=== PATIENT | male | born 1995 | race African-American/Black ===

== ENCOUNTER 2021-10-15 21:04 | Inpatient (IN) | payer OTHER ==
[~2021-10-15] VITALS: Ht 182.9 cm; Wt 76.7 kg
[2021-10-15] MEDS ORDERED: LACTATED RINGERS 1,000 ML IV SCH (21:45)
[2021-10-15 22:17] LABS: BASOPHILS % 0.4 % (0.0-2.0); EOSINOPHILS % 0.1 % (0.0-5.0); HEMATOCRIT. 49.2 % (42.0-52.0); HEMOGLOBIN. 14.7 g/dL (14.0-18.0); LYMPHOCYTES % 9.1 % (20.0-50.0); MEAN CORPUSCULAR HEMOGLOBIN 22.5 pg (28.0-32.0); MEAN CORPUSCULAR VOLUME 74.9 fL (80.0-94.0); MEAN PLATELET VOLUME 8.9 fl (7.4-10.4); MONOCYTES % 10.5 % (2.0-8.0); NEUTROPHILS % 79.9 % (40.0-76.0); PLATELET 296 x1000/uL (130-400); RED BLOOD CELL COUNT 6.56 mill/uL (4.7-6.1); RED CELL DISTRIBUTION WIDTH 15.9 % (11.6-14.6)
[2021-10-15 22:26] LABS: CHLORIDE 96 mEq/L (98-107)
[2021-10-15 22:35] LABS: PLATELET ESTIMATE NORMAL
[2021-10-15] MEDS ORDERED: INSULIN REGULAR (DRIP) 100 UNITS in SODIUM CHLORIDE 0.9% 100 ML IV NR (22:45)
[2021-10-15] MEDS ORDERED: SODIUM CHLORIDE 0.9% 1,000 ML IV STA ×2 (22:46)
[2021-10-15 22:56] LABS: CLARITY URINE CLEAR (CLEAR); COLOR URINE YELLOW (YELLOW); KETONES URINE 3+ (NEGATIVE); LEUKOCYTE ESTERASE URINE NEGATIVE (NEGATIVE); NITRITE URINE NEGATIVE (NEGATIVE); OCCULT BLOOD URINE 2+ (NEGATIVE); PROTEIN URINE 1+ (NEGATIVE); UROBILINOGEN URINE 0.2 E.U./dL (0.2-1.0)
[2021-10-15] MEDS ORDERED: CALCIUM GLUCONATE 100MG/ML 10ML VIAL IV ONE (23:00)
[2021-10-15 23:07] LABS: BETA HYDROXYBUTYRATE 13.6 mMol/L (0.0-0.3)
[2021-10-15] MEDS: INSULIN REGULAR 100U/100ML PMX 100 ML IV NR (23:20)
[2021-10-16] VITALS (31 sets, daily range): BP systolic 105–133; BP diastolic 53–78
[2021-10-16 00:51] LABS: PHOSPHORUS 4.2 mg/dL (2.5-4.9)
[2021-10-16] MEDS ORDERED: SODIUM CHLORIDE 0.9% 1,000 ML IV ONE ×2 (02:00)
[2021-10-16] MEDS ORDERED: DEXT 5%/0.9% NACL 1,000 ML IV SCH (02:00)
[2021-10-16 04:45] LABS: CHLORIDE 110 mEq/L (98-107)
[2021-10-16 04:51] LABS: PHOSPHORUS 2.6 mg/dL (2.5-4.9)
[2021-10-16 05:37] LABS: CHLORIDE 114 mEq/L (98-107)
[2021-10-16 05:44] LABS: PHOSPHORUS 2.2 mg/dL (2.5-4.9)
[2021-10-16] MEDS ORDERED: DEXTROSE 50% WATER 50ML SYRINGE IV PRN ×2 (09:45)
[2021-10-16] MEDS ORDERED: ONDANSETRON HCL 4MG/2ML INJ IV PRN (09:45)
[2021-10-16] MEDS: INSULIN REGULAR 100U/100ML PMX 100 ML IV NR (09:59)
[2021-10-16] MEDS: BLOOD SUGAR DIAGNOSTIC STRIP TEST SCH ×16 (10:00→23:48)
[2021-10-16] MEDS: PANTOPRAZOLE SODIUM 40 MG/VIAL IV SCH (10:01)
[2021-10-16] MEDS: DEXT 5%/0.9% NACL 1,000 ML IV SCH ×3 (10:30→22:10)
[2021-10-16] MEDS ORDERED: INSULIN REGULAR 100U/100ML PMX 100 ML IV SCH (10:30)
[2021-10-16 13:05] LABS: CHLORIDE 113 mEq/L (98-107)
[2021-10-16 13:11] LABS: PHOSPHORUS 1.5 mg/dL (2.5-4.9)
[2021-10-16] MEDS ORDERED: MAGNESIUM/ALUMINUM HYDROXIDE/SIMETHICONE 30ML UDC PO PRN (13:30)
[2021-10-16] MEDS ORDERED: CLONIDINE 0.1MG TABLET PO PRN (13:30)
[2021-10-16] MEDS ORDERED: ACETAMINOPHEN 325MG TABLET PO PRN (13:30)
[2021-10-16] MEDS ORDERED: DOCUSATE SODIUM 100MG CAPSULE PO PRN (13:30)
[2021-10-16] MEDS ORDERED: POTASSIUM PHOS,M-BASIC-D-BASIC 30 MMOL in DEXTROSE 5% WATER 1,000 ML IV SCH (13:30)
[2021-10-16] MEDS: ENOXAPARIN 40MG/0.4ML SYR SUBCUT SCH (15:00)
[2021-10-16] MEDS ORDERED: THROAT LOZENGES-BENZOCAINE/MENTH/CETYLPYRD CL LOZENGES MM PRN (15:00)
[2021-10-16] MEDS ORDERED: POTASSIUM PHOS,M-BASIC-D-BASIC 30 MMOL in DEXT 5% WATER 500 ML IV NR (15:00)
[2021-10-16 16:33] LABS: HEMATOCRIT. 43.5 % (42.0-52.0); HEMOGLOBIN. 14.1 g/dL (14.0-18.0); MEAN CORPUSCULAR HEMOGLOBIN 22.2 pg (28.0-32.0); MEAN CORPUSCULAR VOLUME 68.7 fL (80.0-94.0); MEAN PLATELET VOLUME 8.2 fl (7.4-10.4); PLATELET 246 x1000/uL (130-400); RED BLOOD CELL COUNT 6.34 mill/uL (4.7-6.1); RED CELL DISTRIBUTION WIDTH 15.4 % (11.6-14.6)
[2021-10-16 16:36] LABS: CHLORIDE 114 mEq/L (98-107)
[2021-10-16 17:02] LABS: PLATELET ESTIMATE NORMAL
[2021-10-16] MEDS: METOCLOPRAMIDE HCL 10MG/2ML VIAL IV SCH (17:38)
[2021-10-16 21:38] LABS: CHLORIDE 114 mEq/L (98-107)
[2021-10-16 23:26] LABS: *COCAINE SCREEN URINE NEGATIVE (NEGATIVE); OPIATES URINE SCREEN NEGATIVE (NEGATIVE)
[2021-10-16 23:27] LABS: *AMPHETAMINES SCREEN URINE NEGATIVE (NEGATIVE); *BENZODIAZEPINES SCREEN URINE NEGATIVE (NEGATIVE); CANNABINOID URINE SCREEN PRESUMTIVE POSITIVE (NEGATIVE); PHENCYCLIDINE URINE SCREEN NEGATIVE (NEGATIVE)
[2021-10-17] VITALS (29 sets, daily range): BP systolic 103–151; BP diastolic 24–96
[2021-10-17 01:55] LABS: CHLORIDE 115 mEq/L (98-107)
[2021-10-17] MEDS: BLOOD SUGAR DIAGNOSTIC STRIP TEST SCH ×9 (02:39→21:55)
[2021-10-17] MEDS: DEXT 5%/0.9% NACL 1,000 ML IV SCH ×3 (05:53→21:55)
[2021-10-17] MEDS: METOCLOPRAMIDE HCL 10MG/2ML VIAL IV SCH ×4 (05:53→18:00)
[2021-10-17 06:44] LABS: CHLORIDE 113 mEq/L (98-107)
[2021-10-17 06:53] LABS: PHOSPHORUS 1.3 mg/dL (2.5-4.9)
[2021-10-17 06:56] LABS: T4 FREE 1.06 ng/dL (0.76-1.46)
[2021-10-17 07:05] LABS: BASOPHILS % 0.2 % (0.0-2.0); HEMATOCRIT. 42.2 % (42.0-52.0); HEMOGLOBIN. 13.9 g/dL (14.0-18.0); LYMPHOCYTES % 9.2 % (20.0-50.0); MEAN CORPUSCULAR HEMOGLOBIN 22.5 pg (28.0-32.0); MEAN CORPUSCULAR VOLUME 68.1 fL (80.0-94.0); MEAN PLATELET VOLUME 8.3 fl (7.4-10.4); MONOCYTES % 9.4 % (2.0-8.0); NEUTROPHILS % 81.2 % (40.0-76.0); PLATELET 198 x1000/uL (130-400); RED CELL DISTRIBUTION WIDTH 15.6 % (11.6-14.6)
[2021-10-17] MEDS: KCL 20MEQ/100ML PREMIX 100 ML IV SCH ×2 (08:00→10:00)
[2021-10-17] MEDS: PANTOPRAZOLE SODIUM 40 MG/VIAL IV SCH (09:00)
[2021-10-17 09:34] LABS: CHLORIDE 116 mEq/L (98-107)
[2021-10-17] MEDS ORDERED: DEXTROSE 50% WATER 50ML SYRINGE IV PRN (11:15)
[2021-10-17] MEDS: INSULIN LISPRO 100 UNITS/ML SUBCUT SCH ×3 (13:20→21:57)
[2021-10-17] MEDS: ENOXAPARIN 40MG/0.4ML SYR SUBCUT SCH (15:00)
[2021-10-17] MEDS ORDERED: INSULIN GLARGINE UD 100 UNITS/ML SYR SUBCUT SCH (22:00)
[2021-10-17 22:16] LABS: *BARBITURATES SCREEN URINE NEGATIVE (NEGATIVE); METHADONE URINE SCREEN NEGATIVE (NEGATIVE)
[2021-10-18] VITALS (18 sets, daily range): BP systolic 123–145; BP diastolic 66–96
[2021-10-18] MEDS: METOCLOPRAMIDE HCL 10MG/2ML VIAL IV SCH ×3 (00:07→12:42)
[2021-10-18 06:16] LABS: BASOPHILS % 0.4 % (0.0-2.0); EOSINOPHILS % 0.3 % (0.0-5.0); HEMATOCRIT. 38.4 % (42.0-52.0); HEMOGLOBIN. 12.8 g/dL (14.0-18.0); LYMPHOCYTES % 21.7 % (20.0-50.0); MEAN CORPUSCULAR HEMOGLOBIN 22.5 pg (28.0-32.0); MEAN CORPUSCULAR VOLUME 67.6 fL (80.0-94.0); MONOCYTES % 9.5 % (2.0-8.0); NEUTROPHILS % 68.1 % (40.0-76.0); PLATELET 165 x1000/uL (130-400); RED BLOOD CELL COUNT 5.68 mill/uL (4.7-6.1); RED CELL DISTRIBUTION WIDTH 15.2 % (11.6-14.6)
[2021-10-18 06:31] LABS: CHLORIDE 105 mEq/L (98-107)
[2021-10-18 06:41] LABS: PHOSPHORUS 2.2 mg/dL (2.5-4.9)
[2021-10-18] MEDS ORDERED: LANC-867 TP (07:48)
[2021-10-18] MEDS ORDERED: SYRI-219 SQ (07:48)
[2021-10-18] MEDS ORDERED: METO5TAB86 MT (07:48)
[2021-10-18] MEDS ORDERED: INSU100I28 SQ (07:48)
[2021-10-18] MEDS ORDERED: [UNRECOGNIZED DRUG - CODE] MC (07:48)
[2021-10-18] MEDS ORDERED: INSLIS SUBCUT (07:48)
[2021-10-18] MEDS ORDERED: POTASSIUM CHLORIDE 20MEQ TABLET SR PO SCH (08:00)
[2021-10-18] MEDS: PANTOPRAZOLE SODIUM 40 MG/VIAL IV SCH (08:35)
[2021-10-18] MEDS: BLOOD SUGAR DIAGNOSTIC STRIP TEST SCH ×2 (08:36→12:37)
[2021-10-18] MEDS: INSULIN LISPRO 100 UNITS/ML SUBCUT SCH ×2 (08:36→12:43)
[2021-10-18] MEDS ORDERED: POTASSIUM PHOS,M-BASIC-D-BASIC 20 MMOL in DEXT 5% WATER 243.3333 ML IV SCH (10:00)
[2021-10-18] MEDS ORDERED: INSULIN GLARGINE UD 100 UNITS/ML SYR SUBCUT SCH (10:00)
[2021-10-18] MEDS: ENOXAPARIN 40MG/0.4ML SYR SUBCUT SCH (15:00)
[2021-10-18 15:08] LABS: PHOSPHORUS 2.6 mg/dL (2.5-4.9)
== END 2021-10-18 16:20 | disposition home or self-care (01) | DRG 639 ==
LOC: ER 21:04 → MICUSO 10-16 00:11 → CVICU 10-16 08:58
PROVIDERS: ADMIT Internal Medicine; ATTEND Internal Medicine
DX: E10.10 Type 1 diabetes mellitus with ketoacidosis without coma (principal); E10.43 Type 1 diabetes mellitus with diabetic autonomic (poly)neuropathy; K31.84 Gastroparesis; E86.0 Dehydration; E83.39 Other disorders of phosphorus metabolism; E87.6 Hypokalemia; D72.829 Elevated white blood cell count, unspecified; Z20.822 Contact with and (suspected) exposure to COVID-19; Z79.4 Long term (current) use of insulin
CPT/HCPCS: 36415; 80048; 80053; 80076; 80305; 81003; 82010; 82962; 83036; 83735; 84100; 84132; 84145; 84439; 84443; 85025; 87426; 93005; 93970; 99291; C9113; J0610; J1650; J1815; J2765; J3480; J3490; J7030; J7042; J7050; J7060

== ENCOUNTER 2022-02-01 03:47 | Inpatient (IN) | payer MEDICAID, OTHER ==
[~2022-02-01] VITALS: Ht 170.2 cm; Wt 75.7 kg
[~2022-02-01 03:47] MED LIST: INSLIS SUBCUT; INSU100I28 SQ; LANC-867 TP; METO5TAB86 MT; SYRI-219 SQ; [UNRECOGNIZED DRUG - CODE] MC
[2022-02-01] MEDS ORDERED: SODIUM CHLORIDE 0.9% 1,000 ML IV ONE (04:15)
[2022-02-01] MEDS ORDERED: ONDANSETRON HCL 4MG/2ML INJ IV ONE (05:00)
[2022-02-01 05:04] LABS: HEMATOCRIT. 50.1 % (42.0-52.0); MEAN CORPUSCULAR HEMOGLOBIN 22.3 pg (28.0-32.0); MEAN CORPUSCULAR VOLUME 74.8 fL (80.0-94.0); MEAN PLATELET VOLUME 8.8 fl (7.4-10.4); PLATELET 370 x1000/uL (130-400); RED CELL DISTRIBUTION WIDTH 16.1 % (11.6-14.6)
[2022-02-01 05:18] LABS: CHLORIDE 99 mEq/L (98-107)
[2022-02-01 05:28] LABS: BETA HYDROXYBUTYRATE 9.3 mMol/L (0.0-0.3)
[2022-02-01] MEDS ORDERED: VANCOMYCIN 1G PREMIX 200 ML IV NR (05:45)
[2022-02-01] MEDS ORDERED: PIPERACILLIN/TAZOBACTAM 3.375GM/50ML PREMIX IV ONE (05:45)
[2022-02-01] MEDS ORDERED: SODIUM CHLORIDE 0.9% 1000ML BAG (SEPSIS BOLUS) IV ONE (05:45)
[2022-02-01] MEDS ORDERED: PIPERACILLIN/TAZ 3.375G PREMIX 50 ML IV NR (05:45)
[2022-02-01] MEDS ORDERED: INSULIN REGULAR (DRIP) 100 UNITS in SODIUM CHLORIDE 0.9% 99 ML IV ONE (06:00)
[2022-02-01 06:10] LABS: CLARITY URINE CLEAR (CLEAR); COLOR URINE YELLOW (YELLOW); KETONES URINE 4+ (NEGATIVE); LEUKOCYTE ESTERASE URINE NEGATIVE (NEGATIVE); NITRITE URINE NEGATIVE (NEGATIVE); OCCULT BLOOD URINE TRACE (NEGATIVE); PROTEIN URINE TRACE (NEGATIVE); SPECIFIC GRAVITY URINE 1.019 (1.005-1.030); UROBILINOGEN URINE 0.2 E.U./dL (0.2-1.0)
[2022-02-01] MEDS ORDERED: INSULIN REGULAR 100U/100ML PMX 100 ML IV NR (06:15)
[2022-02-01 06:29] LABS: PLATELET ESTIMATE NORMAL
[2022-02-01] MEDS ORDERED: ONDANSETRON HCL 4MG/2ML INJ IV PRN (10:30)
[2022-02-01] MEDS ORDERED: DIPHENHYDRAMINE 50MG/ML VIAL IV PRN (10:30)
[2022-02-01] MEDS ORDERED: INSULIN REGULAR (DRIP) 100 UNITS in SODIUM CHLORIDE 0.9% 99 ML IV PRN (10:30)
[2022-02-01] MEDS: SODIUM CHLORIDE 0.9% 1,000 ML IV SCH ×2 (10:44→17:10)
[2022-02-01 10:52] LABS: CHLORIDE 114 mEq/L (98-107)
[2022-02-01] MEDS: PANTOPRAZOLE SODIUM 40 MG/VIAL IV SCH (14:21)
[2022-02-01] MEDS: ENOXAPARIN 40MG/0.4ML SYR SUBCUT SCH (14:21)
[2022-02-01] MEDS ORDERED: DEXT 5%/0.45% NACL 500ML 500 ML IV ONE (16:45)
[2022-02-01] MEDS: DEXT 5%/0.45% NACL 1000ML 1,000 ML IV NR (17:15)
[2022-02-01 22:39] LABS: CHLORIDE 114 mEq/L (98-107)
[2022-02-02] MEDS: SODIUM CHLORIDE 0.9% 1,000 ML IV SCH ×3 (00:11→16:26)
[2022-02-02] MEDS: DEXT 5%/0.45% NACL 1000ML 1,000 ML IV NR (02:38)
[2022-02-02 04:06] LABS: BASOPHILS % 0.3 % (0.0-2.0); EOSINOPHILS % 0.1 % (0.0-5.0); HEMATOCRIT. 41.2 % (42.0-52.0); HEMOGLOBIN. 13.1 g/dL (14.0-18.0); LYMPHOCYTES % 12.1 % (20.0-50.0); MEAN CORPUSCULAR HEMOGLOBIN 22.7 pg (28.0-32.0); MEAN CORPUSCULAR VOLUME 71.2 fL (80.0-94.0); MEAN PLATELET VOLUME 7.8 fl (7.4-10.4); MONOCYTES % 11.7 % (2.0-8.0); NEUTROPHILS % 75.8 % (40.0-76.0); PLATELET 262 x1000/uL (130-400); RED BLOOD CELL COUNT 5.78 mill/uL (4.7-6.1); RED CELL DISTRIBUTION WIDTH 15.8 % (11.6-14.6)
[2022-02-02 04:21] LABS: CHLORIDE 113 mEq/L (98-107)
[2022-02-02 04:26] LABS: PHOSPHORUS 1.3 mg/dL (2.5-4.9)
[2022-02-02] MEDS ORDERED: DEXTROSE 50% WATER 50ML SYRINGE IV PRN (07:00)
[2022-02-02] MEDS ORDERED: INSULIN GLARGINE 100 UNITS/ML SUBCUT NR (07:00)
[2022-02-02] MEDS ORDERED: POTASSIUM PHOS,M-BASIC-D-BASIC 30 MMOL in SODIUM CHLORIDE 0.9% 500 ML IV NR (08:00)
[2022-02-02] MEDS: INSULIN LISPRO (HIGH DOSE) 100 UNITS/ML SUBCUT SCH ×4 (08:59→21:00)
[2022-02-02] MEDS: PANTOPRAZOLE SODIUM 40 MG/VIAL IV SCH (09:00)
[2022-02-02] MEDS: BLOOD SUGAR DIAGNOSTIC STRIP TEST SCH ×4 (09:10→21:00)
[2022-02-02 10:20] VITALS: BP 141/88
[2022-02-02 12:00] VITALS: BP 139/87
[2022-02-02] MEDS: ENOXAPARIN 40MG/0.4ML SYR SUBCUT SCH (12:00)
[2022-02-02] MEDS ORDERED: POTASSIUM CHLORIDE 20MEQ TABLET SR PO NR (12:45)
[2022-02-02 16:00] VITALS: BP 125/81
[2022-02-02 20:00] VITALS: BP 132/83
[2022-02-02] MEDS ORDERED: ACETAMINOPHEN WITH CODEINE 300/30MG TABLET PO PRN (22:30)
[2022-02-03] VITALS (7 sets, daily range): BP systolic 118–144; BP diastolic 70–87
[2022-02-03] MEDS: SODIUM CHLORIDE 0.9% 1,000 ML IV SCH ×2 (02:21→13:07)
[2022-02-03] MEDS: BLOOD SUGAR DIAGNOSTIC STRIP TEST SCH ×3 (06:20→17:29)
[2022-02-03] MEDS: INSULIN LISPRO (HIGH DOSE) 100 UNITS/ML SUBCUT SCH ×3 (07:00→17:46)
[2022-02-03 07:23] LABS: CHLORIDE 107 mEq/L (98-107)
[2022-02-03 07:44] LABS: PHOSPHORUS 2.4 mg/dL (2.5-4.9)
[2022-02-03] MEDS: POTASSIUM CHLORIDE 20MEQ TABLET SR PO SCH ×3 (08:48→13:06)
[2022-02-03] MEDS: PANTOPRAZOLE SODIUM 40 MG/VIAL IV SCH (08:48)
[2022-02-03] MEDS ORDERED: INSULIN GLARGINE 100 UNITS/ML SUBCUT SCH (10:00)
[2022-02-03] MEDS ORDERED: MAGNESIUM 4 G PREMIX 100 ML IV NR (11:00)
[2022-02-03] MEDS: ENOXAPARIN 40MG/0.4ML SYR SUBCUT SCH (12:00)
[2022-02-04] MEDS ORDERED: FAMOTIDINE 20MG/2ML VIAL IV SCH (09:00)
== END 2022-02-03 20:32 | disposition home or self-care (01) | DRG 420 ==
LOC: ER 03:47 → 7WST 05:48 → EDBEDREQSVC 02-02 06:21
PROVIDERS: ADMIT Internal Medicine; ATTEND Internal Medicine
DX: E11.10 Type 2 diabetes mellitus with ketoacidosis without coma (principal); R65.10 Systemic inflammatory response syndrome (SIRS) of non-infectious origin without acute organ dysfunction; E87.8 Other disorders of electrolyte and fluid balance, not elsewhere classified; Z60.2 Problems related to living alone; Z91.14 Patient's other noncompliance with medication regimen; Z83.3 Family history of diabetes mellitus; Z79.4 Long term (current) use of insulin; Z79.899 Other long term (current) drug therapy
CPT/HCPCS: 36415; 71045; 80048; 80053; 81003; 82010; 82962; 83605; 83735; 84100; 84484; 85025; 93005; 99291; C9113; J1650; J1815; J2405; J2543; J3370; J3475; J3490; J7030; J7040; J7050

== ENCOUNTER 2022-03-31 18:17 | Emergency (ER) | payer MEDICAID ==
[~2022-03-31] VITALS: Ht 170.2 cm; Wt 75.0 kg
[2022-03-31 18:29] VITALS: BP 150/94
[2022-03-31] MEDS ORDERED: INSLIS SUBCUT (20:55)
[2022-03-31] MEDS ORDERED: INSU100I28 SQ (20:55)
== END 2022-03-31 21:20 | disposition home or self-care (01) ==
LOC: ER 18:17
DX: Z76.0 Encounter for issue of repeat prescription (principal)
CPT/HCPCS: 82962; 99282